=== PATIENT | female | born 1980 | race Caucasian/White ===

== ENCOUNTER 2023-02-18 22:02 | Observation (INO) | payer MEDICARE ==
[2023-02-18 22:54] LABS: #Eosinphils 0.1 thou/uL (0.0-0.7); #Monocytes 0.3 thou/uL (0.11-0.59); #Neutrophils 4.5 thou/uL (1.40-6.50); %Basophils 0.6 % (0.0-1.0); %Eosinophils 0.7 % (0.0-10.0); %Lymphocytes 29.1 % (21.0-51.0); %Monocytes 4.6 % (0.0-10.0); %Neutrophils 64.7 % (42.0-75.0); Hematocrit 39.2 % (36.0-47.0); Hemoglobin 13.5 g/dL (12.0-16.0); Mean Corpuscular HGB CONC 34.4 g/dL (32.0-36.0); Mean Corpuscular Hemoglobin 30.7 pg (27.0-31.0); Mean Corpuscular Volume 89.1 fl (78.0-98.0); Mean Platelet Volume 10.1 fL (7.4-10.4); Platelet Count 258 10x3/uL (130-400); RBC Distribution Width 14.2 % (11.5-14.5)
[2023-02-18] MEDS ORDERED: methylPREDNISolone Sod Succ/PF 125 MG/2 ML VIAL ONE (23:01)
[2023-02-18] MEDS ORDERED: Famotidine/PF 20 mg/2ml Vial ONE (23:01)
[2023-02-18] MEDS ORDERED: diphenhydrAMINE 50 MG/ML VIAL ONE (23:01)
[2023-02-18] MEDS ORDERED: EPINEPHrine 1 MG/ML VIAL ONE (23:01)
[2023-02-18 23:30] LABS: ALT (SGPT) 13 U/L (8-55); AST (SGOT) 36 U/L (5-34); Albumin 3.4 g/dL (3.5-5.0); Alkaline Phosphatase 92 U/L (40-110); Anion Gap 14 mmol/L (10-20); BUN (Urea Nitrogen) 4 mg/dL (7.0-18.7); Bilirubin, Total 0.7 mg/dL (0.2-1.2); Calc. Creatinine Clearance 0 mL/min (70-130); Calcium 9.3 mg/dL (7.8-10.44); Carbon Dioxide 22 mmol/L (22-29); Chloride 106 mmol/L (98-107); Estimated GFR 86; Globulin 3.2 g/dL (2.4-3.5); Glucose 116 mg/dL (70-105); Potassium 3.6 mmol/L (3.5-5.1); Protein, Total 6.6 g/dL (6.0-8.3); Sodium 138 mmol/L (136-145)
[2023-02-19] MEDS ORDERED: Ondansetron PF 4 MG/2 ML Vial IVP PRN (00:58)
[2023-02-19] MEDS ORDERED: Acetaminophen 325 MG TAB PO PRN (00:58)
[2023-02-19] MEDS ORDERED: Ipratropium/Albuterol 3 ML NEB EZPAP PRN (00:59)
[2023-02-19] MEDS ORDERED: Midodrine HCl 5 MG TAB PO PRN (01:10)
[2023-02-19] MEDS ORDERED: HYOSCYAMINE 0.125 MG PO SCH ×2 (01:30→10:00)
[2023-02-19] MEDS ORDERED: UDCUP PO SCH ×2 (01:30→10:00)
[2023-02-19 01:59] VITALS: BMI 39.2
[2023-02-19 06:27] LABS: #Monocytes 0.1 thou/uL (0.11-0.59); #Neutrophils 4.5 thou/uL (1.40-6.50); %Basophils 0.4 % (0.0-1.0); %Lymphocytes 14.2 % (21.0-51.0); %Monocytes 1.1 % (0.0-10.0); %Neutrophils 83.7 % (42.0-75.0); Hematocrit 39.8 % (36.0-47.0); Hemoglobin 13.6 g/dL (12.0-16.0); Mean Corpuscular HGB CONC 34.2 g/dL (32.0-36.0); Mean Corpuscular Hemoglobin 30.4 pg (27.0-31.0); Mean Platelet Volume 10.3 fL (7.4-10.4); Platelet Count 261 10x3/uL (130-400); RBC Distribution Width 14.3 % (11.5-14.5); Red Blood Cell (RBC) Count 4.47 mill/uL (4.20-5.40); White Blood Cell (WBC) Count 5.4 10x3/uL (4.8-10.8)
[2023-02-19 06:56] LABS: Anion Gap 14 mmol/L (10-20); BUN (Urea Nitrogen) 6 mg/dL (7.0-18.7); Calc. Creatinine Clearance 163 mL/min (70-130); Calcium 9.3 mg/dL (7.8-10.44); Carbon Dioxide 22 mmol/L (22-29); Chloride 106 mmol/L (98-107); Estimated GFR 89; Glucose 149 mg/dL (70-105); Potassium 3.5 mmol/L (3.5-5.1); Sodium 138 mmol/L (136-145)
[2023-02-19] MEDS ORDERED: Multivitamin W/ Minerals 1 TAB PO SCH (09:00)
[2023-02-19] MEDS ORDERED: prednisoLONE 10 MG ODT TAB PO SCH (09:00)
[2023-02-19] MEDS ORDERED: Folic Acid 1 MG TAB PO SCH (09:00)
[2023-02-19] MEDS ORDERED: Lactulose 20 GM (30 mL) UDCUP PO SCH (09:00)
[2023-02-19] MEDS ORDERED: methylPREDNISolone Sod Succ 40 MG VIAL IVP SCH (09:00)
[2023-02-19] MEDS ORDERED: Thiamine 100 MG TAB PO SCH (09:00)
[2023-02-19] MEDS ORDERED: Sodium Chloride 0.9% 1,000 ML IV SCH (09:45)
[2023-02-19] MEDS ORDERED: Folic Acid 1 MG TAB ONE (10:20)
[2023-02-19] MEDS ORDERED: Thiamine 100 MG TAB ONE (10:21)
[2023-02-19] MEDS ORDERED: Lactulose 20 GM (30 mL) UDCUP ONE (10:21)
[2023-02-19] MEDS ORDERED: Multivit, Therapeutic 1 TAB ONE (10:21)
[2023-02-19 11:24] LABS: Amphetamine Not Detected (NotDetected); Barbiturates Screen Not Detected (NotDetected); Benzodiazepine Screen Not Detected (NotDetected); Cocaine Metabolite Screen Not Detected (NotDetected); Methadone Not Detected (NotDetected); Methamphetamine Not Detected (NotDetected); Opiate Screen Detected (NotDetected); Oxycodone Screen Not Detected (NotDetected); Phencyclidine (PCP) Not Detected (NotDetected); THC/Cannabinoid Screen Detected (NotDetected); Tricyclic Screen Not Detected (NotDetected)
[2023-02-19 11:29] VITALS: BP 153/90; TEMP 98.1
[2023-02-19 13:51] LABS: Bilirubin Negative (Negative); Blood, Urine Negative (Negative); Clarity Clear (Clear); Glucose, Urine (Dipstick) Normal (Negative); Ketone, Urine Negative (Negative); Leukocyte Negative Leu/uL (Negative); Nitrite Negative (Negative); Protein, Urine (Dipstick) Negative (Neg-Trace); Specific Gravity, Urine 1.012 (1.002-1.036); pH, Urine 5.5 (5.0-9.0)
== END 2023-02-20 12:32 | disposition left against medical advice (07) ==
LOC: ERS 22:02 → ERHOLD 02-19 01:00
PROVIDERS: ADMIT Internal Medicine; ATTEND Hospitalist
DX: T78.3XXA Angioneurotic edema, initial encounter (principal); E27.40 Unspecified adrenocortical insufficiency; J44.9 Chronic obstructive pulmonary disease, unspecified; K70.30 Alcoholic cirrhosis of liver without ascites; I27.20 Pulmonary hypertension, unspecified; I50.9 Heart failure, unspecified; F10.10 Alcohol abuse, uncomplicated; J96.11 Chronic respiratory failure with hypoxia; Z88.8 Allergy status to other drugs, medicaments and biological substances; Z87.891 Personal history of nicotine dependence
CPT/HCPCS: 80048; 80053; 80306; 81003; 85025 ×2; 93005; 96372; 96374; 96375; 99285; J0171; 36415; J1200; J2930; J7050; S0028

== ENCOUNTER 2023-06-22 21:38 | Inpatient (IN) | payer MEDICARE ==
[2023-06-22] MEDS ORDERED: Ondansetron PF 4 MG/2 ML Vial ONE (22:27)
[2023-06-22] MEDS ORDERED: LORazepam 2 MG/ML SYR.(CARPUJECT) ONE (22:28)
[2023-06-22 22:33] LABS: #Basophils 0.08 10x3/uL (0.0-0.2); %Basophils 0.8 % (0.0-1.0); %Eosinophils 2.1 % (0.0-10.0); %Lymphocytes 42.3 % (21.0-51.0); %Monocytes 7.2 % (0.0-10.0); %Neutrophils 47.1 % (42.0-75.0); Hemoglobin 15.1 g/dL (12.0-16.0); Mean Corpuscular HGB CONC 35.1 g/dL (32.0-36.0); Mean Corpuscular Hemoglobin 31.5 pg (27.0-31.0); Mean Corpuscular Volume 89.8 fL (78.0-98.0); Mean Platelet Volume 9.6 fL (7.4-10.4); Platelet Count 317 10x3/uL (130-400); RBC Distribution Width 13.2 % (11.5-14.5); Red Blood Cell (RBC) Count 4.79 mill/uL (4.20-5.40)
[2023-06-22 22:43] LABS: ALT (SGPT) 35 U/L (8-55); AST (SGOT) 31 U/L (5-34); Acetaminophen Less than 10 mcg/mL (10.0-30.0); Albumin 4.1 g/dL (3.5-5.0); Alcohol Less than 10.0 mg/dL (Less than 10); Alkaline Phosphatase 134 U/L (40-110); Anion Gap 15 mmol/L (10-20); BUN (Urea Nitrogen) 8 mg/dL (7.0-18.7); Bilirubin, Total 0.6 mg/dL (0.2-1.2); Calc. Creatinine Clearance 0 mL/min (70-130); Carbon Dioxide 23 mmol/L (22-29); Chloride 107 mmol/L (98-107); Estimated GFR 89; Globulin 3.6 g/dL (2.4-3.5); Glucose 87 mg/dL (70-105); Potassium 3.9 mmol/L (3.5-5.1); Protein, Total 7.7 g/dL (6.0-8.3); Salicylate Less than 8.0 mg/dL (15.0-30.0); Sodium 141 mmol/L (136-145)
[2023-06-22 22:46] LABS: PTT 28.1 sec (22.9-36.1); Prothrombin Time 13.2 sec (12.0-14.7)
[2023-06-22 22:50] LABS: Troponin I Less than 0.010 ng/mL (< 0.028)
[2023-06-22 22:59] LABS: Actual Bicarbonate (HCO3v) 21.4 mEq/L (22-28); Base Excess -2.5 mEq/L (-2.0 to +3.0); Calcium, Ionized (venous) 1.11 mmol/L (1.16-1.32); Chloride (VBG) 105 mmol/L (98-106); Hematocrit-VBG 48 % (36.0-47.0); Hemoglobin (Hb) 16.2 g/dL (11.7-15.5); Potassium (VBG) 3.83 mmol/L (3.70-5.30); Sodium 141 mmol/L (133-146); pH (venous) 7.406 (7.32-7.43)
[2023-06-22 23:07] LABS: D-Dimer Test Less than 0.27 mcg/mL (0.27-0.43)
[2023-06-22] MEDS ORDERED: Electrolyte Replacement Protocol 1 EACH FS SCH (23:45)
[2023-06-22] MEDS ORDERED: Ondansetron ODT 4 MG TAB SL PRN (23:45)
[2023-06-22] MEDS ORDERED: Ondansetron PF 4 MG/2 ML Vial IVP PRN (23:45)
[2023-06-22] MEDS ORDERED: Lorazepam 2 MG/ML VIAL IM PRN (23:47)
[2023-06-22] MEDS ORDERED: Lorazepam 1 MG TAB PO PRN (23:47)
[2023-06-22] MEDS ORDERED: Morphine 4 MG/ML VIAL ONE (23:49)
[2023-06-22] MEDS ORDERED: Aspirin Chewable 81 MG TAB ONE (23:50)
[2023-06-23 01:39] LABS: Troponin I Less than 0.010 ng/mL (< 0.028)
[2023-06-23 01:52] VITALS: BMI 38.5
[2023-06-23 02:18] LABS: #Basophils 0.05 10x3/uL (0.0-0.2); %Basophils 0.6 % (0.0-1.0); %Eosinophils 2.4 % (0.0-10.0); %Lymphocytes 33.6 % (21.0-51.0); %Monocytes 7.3 % (0.0-10.0); %Neutrophils 55.8 % (42.0-75.0); Hematocrit 40.1 % (36.0-47.0); Hemoglobin 14.1 g/dL (12.0-16.0); Mean Corpuscular HGB CONC 35.2 g/dL (32.0-36.0); Mean Corpuscular Hemoglobin 31.1 pg (27.0-31.0); Mean Corpuscular Volume 88.5 fL (78.0-98.0); Mean Platelet Volume 9.3 fL (7.4-10.4); Platelet Count 257 10x3/uL (130-400); RBC Distribution Width 13.3 % (11.5-14.5); Red Blood Cell (RBC) Count 4.53 mill/uL (4.20-5.40)
[2023-06-23] MEDS: Lorazepam 1 MG TAB PO SCH (02:21)
[2023-06-23] MEDS: Multivitamins, Adult 10 ML, Thiamine HCl 100 MG, Folic Acid 1 MG in Dextrose 5 %-0.45 %... IV SCH (02:22)
[2023-06-23 02:33] LABS: Lactic Acid 1.3 mmol/L (0.5-2.2)
[2023-06-23] MEDS: Acetaminophen 325 MG TAB PO PRN (02:39)
[2023-06-23 02:52] LABS: Anion Gap 14 mmol/L (10-20); BUN (Urea Nitrogen) 8 mg/dL (7.0-18.7); Calc. Creatinine Clearance 184 mL/min (70-130); Calcium 9.4 mg/dL (7.8-10.44); Carbon Dioxide 19 mmol/L (22-29); Chloride 108 mmol/L (98-107); Estimated GFR 106; Glucose 101 mg/dL (70-105); Potassium 3.4 mmol/L (3.5-5.1); Sodium 138 mmol/L (136-145)
[2023-06-23] MEDS: Thiamine HCl 200 MG/2 ML VIAL SLOW IVP SCH (03:57)
[2023-06-23 05:14] LABS: Troponin I 0.011 ng/mL (< 0.028)
[2023-06-23 06:16] LABS: Amphetamine Not Detected (NotDetected); Barbiturates Screen Not Detected (NotDetected); Benzodiazepine Screen Detected (NotDetected); Cocaine Metabolite Screen Not Detected (NotDetected); Methadone Not Detected (NotDetected); Methamphetamine Not Detected (NotDetected); Opiate Screen Detected (NotDetected); Oxycodone Screen Not Detected (NotDetected); Phencyclidine (PCP) Not Detected (NotDetected); THC/Cannabinoid Screen Detected (NotDetected); Tricyclic Screen Not Detected (NotDetected)
[2023-06-23] MEDS: Magnesium 2 GM/50 ML(in water) 2 GM in Premix 1 BAG IVPB SCH (06:43)
[2023-06-23] MEDS: Potassium Chloride 20 MEQ TAB PO SCH (06:44)
[2023-06-23] MEDS: Folic Acid 1 MG TAB PO SCH (08:20)
[2023-06-23] MEDS: Multivit, Therapeutic 1 TAB PO SCH (08:21)
[2023-06-23] MEDS ORDERED: Diazepam 5 MG TAB PO SCH (12:45)
[2023-06-23 13:15] LABS: Pregnancy Test - Urine (BHCG) Negative (Negative); Pregu Control Background? CLEAR/WHITE (CLR/WHITE); Pregu Control Bar Appear? YES (CONTROL BAR); Specific Gravity 1.006 (1.002-1.036)
[2023-06-23] MEDS: Ondansetron ODT 4 MG TAB PO PRN (17:46)
[2023-06-23] MEDS ORDERED: Methocarbamol 500 MG TAB PO PRN (18:26)
[2023-06-23] MEDS ORDERED: Acetaminophen/Codeine 30-300mg Tablet PO PRN (18:31)
[2023-06-23] MEDS: predniSONE 5 MG TAB PO SCH (21:28)
[2023-06-23] MEDS: Atorvastatin Calcium 40 MG TAB PO SCH (21:28)
[2023-06-23] MEDS ORDERED: Lorazepam 1 MG TAB PO PRN (23:47)
[2023-06-24 04:39] LABS: #Basophils 0.05 10x3/uL (0.0-0.2); %Basophils 0.6 % (0.0-1.0); %Eosinophils 1.6 % (0.0-10.0); %Lymphocytes 24.2 % (21.0-51.0); %Neutrophils 68.2 % (42.0-75.0); Hematocrit 43.7 % (36.0-47.0); Hemoglobin 14.9 g/dL (12.0-16.0); Mean Corpuscular HGB CONC 34.1 g/dL (32.0-36.0); Mean Corpuscular Hemoglobin 31.7 pg (27.0-31.0); Mean Platelet Volume 9.4 fL (7.4-10.4); Platelet Count 295 10x3/uL (130-400); RBC Distribution Width 13.2 % (11.5-14.5)
[2023-06-24 04:50] LABS: Anion Gap 13 mmol/L (10-20); BUN (Urea Nitrogen) 7 mg/dL (7.0-18.7); Calc. Creatinine Clearance 166 mL/min (70-130); Calcium 9.7 mg/dL (7.8-10.44); Carbon Dioxide 23 mmol/L (22-29); Chloride 106 mmol/L (98-107); Estimated GFR 93; Glucose 105 mg/dL (70-105); Magnesium 2.2 mg/dL (1.6-2.6); Potassium 4.2 mmol/L (3.5-5.1); Sodium 138 mmol/L (136-145)
[2023-06-24 07:35] VITALS: BMI 38.5
[2023-06-24] MEDS: Pantoprazole DR 40 MG TAB PO SCH (09:10)
[2023-06-24] MEDS: Potassium Chloride 20 MEQ TAB PO SCH (09:10)
[2023-06-24] MEDS: Aspirin 81 mg Enteric Coated Tablet PO SCH (09:10)
[2023-06-24] MEDS: Lactulose 20 GM (30 mL) UDCUP PO SCH (09:11)
[2023-06-24] MEDS: Furosemide 40 MG TAB PO SCH (09:11)
[2023-06-24] MEDS: predniSONE 5 MG TAB PO SCH (09:11)
[2023-06-24] MEDS: Lorazepam 2 MG/ML VIAL SLOW IVP SCH (15:25)
[2023-06-24 16:56] VITALS: BP 142/90; TEMP 98
[2023-06-24] MEDS ORDERED: Lorazepam 0.5 MG TAB PO SCH (23:45)
[2023-06-24] MEDS ORDERED: Lorazepam 1 MG TAB PO PRN (23:47)
[2023-06-25] MEDS ORDERED: Thiamine 100 MG TAB PO SCH (21:00)
[2023-06-25] MEDS ORDERED: Lorazepam 0.5 MG TAB PO PRN (23:47)
== END 2023-06-24 18:54 | disposition home or self-care (01) | DRG 897 ==
LOC: ERS 21:38 → 2SW 23:32 → OBSVTOIN 06-23 13:38
PROVIDERS: ADMIT Student in an Organized Health Care Education/Training Program; ATTEND Internal Medicine
DX: F10.239 Alcohol dependence with withdrawal, unspecified (principal); I50.32 Chronic diastolic (congestive) heart failure; R07.89 Other chest pain; J44.9 Chronic obstructive pulmonary disease, unspecified; Z88.8 Allergy status to other drugs, medicaments and biological substances; Z79.899 Other long term (current) drug therapy; Z79.82 Long term (current) use of aspirin; K70.30 Alcoholic cirrhosis of liver without ascites; F41.9 Anxiety disorder, unspecified; M48.02 Spinal stenosis, cervical region; M54.12 Radiculopathy, cervical region; I27.20 Pulmonary hypertension, unspecified
CPT/HCPCS: 36415; 71045; 72156; 80048; 80053; 80306; 80307; 81025; 82805; 83605; 83735; 83880; 84443; 84484; 85025; 85379; 85610; 85730; 93005; 94760; J2060; J2270; J2405; J3411; J3475; J7042; J7512; Q0162

== ENCOUNTER 2023-08-15 09:20 | Emergency (ER) | payer MEDICARE, SELFPAY ==
[2023-08-15] MEDS ORDERED: Morphine 4 MG/ML VIAL ONE ×2 (09:39→11:49)
[2023-08-15] MEDS ORDERED: Ondansetron PF 4 MG/2 ML Vial ONE ×2 (09:39→11:49)
[2023-08-15 09:50] LABS: #Basophils 0.04 10x3/uL (0.0-0.2); %Basophils 0.4 % (0.0-1.0); %Eosinophils 0.5 % (0.0-10.0); %Lymphocytes 15.7 % (21.0-51.0); %Monocytes 4.5 % (0.0-10.0); %Neutrophils 78.5 % (42.0-75.0); Hematocrit 44.8 % (36.0-47.0); Hemoglobin 15.4 g/dL (12.0-16.0); Mean Corpuscular HGB CONC 34.4 g/dL (32.0-36.0); Mean Corpuscular Hemoglobin 30.9 pg (27.0-31.0); Mean Platelet Volume 9.4 fL (7.4-10.4); Platelet Count 313 10x3/uL (130-400); Red Blood Cell (RBC) Count 4.98 mill/uL (4.20-5.40)
[2023-08-15 10:03] LABS: ALT (SGPT) 28 U/L (8-55); AST (SGOT) 25 U/L (5-34); Albumin 4.1 g/dL (3.5-5.0); Alkaline Phosphatase 151 U/L (40-110); Anion Gap 15 mmol/L (10-20); BUN (Urea Nitrogen) 11 mg/dL (7.0-18.7); Calc. Creatinine Clearance 0 mL/min (70-130); Calcium 9.9 mg/dL (7.8-10.44); Carbon Dioxide 22 mmol/L (22-29); Chloride 106 mmol/L (98-107); Estimated GFR 92; Globulin 3.7 g/dL (2.4-3.5); Glucose 94 mg/dL (70-105); Magnesium 2.1 mg/dL (1.6-2.6); Potassium 4.1 mmol/L (3.5-5.1); Protein, Total 7.8 g/dL (6.0-8.3); Sodium 139 mmol/L (136-145)
[2023-08-15 10:10] LABS: Troponin I Less than 0.010 ng/mL (< 0.028)
[2023-08-15 10:37] LABS: Digoxin Less than 0.19 ng/mL (0.8-2.0)
[2023-08-15] MEDS ORDERED: Ketorolac Tromethamine 30 MG (1 mL) VIAL ONE (11:49)
== END 2023-08-15 12:44 | disposition home or self-care (01) ==
LOC: ERS 09:20
DX: R07.89 Other chest pain (principal); R51.9 Headache, unspecified; J44.9 Chronic obstructive pulmonary disease, unspecified
CPT/HCPCS: 71045; 80053; 80162; 83735; 83880; 84484; 85025; 93005; J1885; J2270; J2405; 36415; 96374; 96375; 96376

== ENCOUNTER 2023-09-03 09:29 | Observation (INO) | payer OTHER, SELFPAY ==
[2023-09-03] MEDS ORDERED: Morphine 4 MG/ML VIAL ONE (10:15)
[2023-09-03] MEDS ORDERED: Ondansetron PF 4 MG/2 ML Vial ONE (10:15)
[2023-09-03 10:22] LABS: #Basophils 0.06 10x3/uL (0.0-0.2); %Basophils 0.6 % (0.0-1.0); %Eosinophils 1.9 % (0.0-10.0); %Lymphocytes 36.3 % (21.0-51.0); %Monocytes 8.1 % (0.0-10.0); %Neutrophils 52.9 % (42.0-75.0); Hematocrit 45.1 % (36.0-47.0); Hemoglobin 15.9 g/dL (12.0-16.0); Mean Corpuscular HGB CONC 35.3 g/dL (32.0-36.0); Mean Corpuscular Hemoglobin 30.8 pg (27.0-31.0); Mean Corpuscular Volume 87.4 fL (78.0-98.0); Mean Platelet Volume 9.5 fL (7.4-10.4); Platelet Count 345 10x3/uL (130-400); RBC Distribution Width 12.8 % (11.5-14.5); Red Blood Cell (RBC) Count 5.16 mill/uL (4.20-5.40)
[2023-09-03 10:42] LABS: Digoxin Less than 0.19 ng/mL (0.8-2.0); Prothrombin Time 12.9 sec (12.0-14.7)
[2023-09-03 10:46] LABS: Troponin I Less than 0.010 ng/mL (< 0.028)
[2023-09-03 11:40] LABS: ALT (SGPT) 25 U/L (8-55); AST (SGOT) 25 U/L (5-34); Albumin 4.3 g/dL (3.5-5.0); Alkaline Phosphatase 140 U/L (40-110); Anion Gap 13 mmol/L (10-20); BUN (Urea Nitrogen) 7 mg/dL (7.0-18.7); Calc. Creatinine Clearance 0 mL/min (70-130); Carbon Dioxide 24 mmol/L (22-29); Chloride 105 mmol/L (98-107); Estimated GFR 75; Globulin 3.6 g/dL (2.4-3.5); Glucose 77 mg/dL (70-105); Lipase 20 U/L (8-78); Potassium 3.4 mmol/L (3.5-5.1); Protein, Total 7.9 g/dL (6.0-8.3); Sodium 139 mmol/L (136-145)
[2023-09-03 11:43] LABS: Influenza A by NAA Not Detected (NotDetected); Influenza B by NAA Not Detected (NotDetected); SARS-CoV-2 NAA Rapid Test Not Detected (NotDetected)
[2023-09-03] MEDS ORDERED: Acetaminophen 325 MG TAB PO PRN (12:18)
[2023-09-03 13:45] VITALS: BMI 35.7
[2023-09-03 14:49] LABS: Troponin I Less than 0.010 ng/mL (< 0.028)
[2023-09-03 16:52] LABS: Troponin I Less than 0.010 ng/mL (< 0.028)
[2023-09-03] MEDS: Potassium Chloride 20 MEQ TAB PO SCH (17:28)
[2023-09-03] MEDS: Prochlorperazine Edisylate 10 MG in Sodium Chloride 0.9% 50 ML IVPB PRN (17:29)
[2023-09-03] MEDS ORDERED: HYDROcodone/Acetaminophen 5/325 mg Tablet PO PRN (20:46)
[2023-09-03] MEDS ORDERED: ALPRAZolam 0.5 MG TAB PO PRN (20:46)
[2023-09-03] MEDS ORDERED: Acetaminophen/Codeine 30-300mg Tablet PO PRN (20:46)
[2023-09-03] MEDS ORDERED: Cyclobenzaprine 10 MG TAB PO PRN (20:46)
[2023-09-03] MEDS ORDERED: tiZANidine HCl 4 MG TAB PO PRN (20:46)
[2023-09-04 01:44] LABS: Amphetamine Detected (NotDetected); Barbiturates Screen Not Detected (NotDetected); Benzodiazepine Screen Not Detected (NotDetected); Cocaine Metabolite Screen Not Detected (NotDetected); Methadone Not Detected (NotDetected); Methamphetamine Detected (NotDetected); Opiate Screen Detected (NotDetected); Oxycodone Screen Not Detected (NotDetected); Phencyclidine (PCP) Not Detected (NotDetected); THC/Cannabinoid Screen Detected (NotDetected); Tricyclic Screen Not Detected (NotDetected)
[2023-09-04 04:35] LABS: Hematocrit 43.8 % (36.0-47.0); Mean Corpuscular HGB CONC 34.2 g/dL (32.0-36.0); Mean Corpuscular Hemoglobin 31.1 pg (27.0-31.0); Mean Corpuscular Volume 90.7 fL (78.0-98.0); Mean Platelet Volume 9.9 fL (7.4-10.4); Platelet Count 308 10x3/uL (130-400); RBC Distribution Width 12.8 % (11.5-14.5); Red Blood Cell (RBC) Count 4.83 mill/uL (4.20-5.40)
[2023-09-04 05:11] LABS: ALT (SGPT) 18 U/L (8-55); AST (SGOT) 23 U/L (5-34); Albumin 3.7 g/dL (3.5-5.0); Alkaline Phosphatase 125 U/L (40-110); Anion Gap 12 mmol/L (10-20); BUN (Urea Nitrogen) 7 mg/dL (7.0-18.7); Bilirubin, Total 1.2 mg/dL (0.2-1.2); Calc. Creatinine Clearance 143 mL/min (70-130); Calcium 9.4 mg/dL (7.8-10.44); Carbon Dioxide 23 mmol/L (22-29); Chloride 106 mmol/L (98-107); Estimated GFR 86; Globulin 3.4 g/dL (2.4-3.5); Glucose 79 mg/dL (70-105); Potassium 3.3 mmol/L (3.5-5.1); Protein, Total 7.1 g/dL (6.0-8.3); Sodium 138 mmol/L (136-145)
[2023-09-04] MEDS: Lactulose 20 GM (30 mL) UDCUP PO SCH (08:43)
[2023-09-04] MEDS: Enoxaparin 40 MG (0.4 mL) SYRINGE SC SCH (08:44)
[2023-09-04] MEDS: predniSONE 5 MG TAB PO SCH (08:44)
[2023-09-04] MEDS: Escitalopram Oxalate 10 mg Tablet PO SCH (08:44)
[2023-09-04] MEDS: Folic Acid 1 MG TAB PO SCH (08:44)
[2023-09-04] MEDS: Atorvastatin Calcium 40 MG TAB PO SCH (08:44)
[2023-09-04] MEDS: Multivit, Therapeutic 1 TAB PO SCH (08:44)
[2023-09-04] MEDS ORDERED: Ondansetron PF 4 MG/2 ML Vial IVP PRN (08:52)
[2023-09-04] MEDS: Potassium Chloride 20 MEQ TAB PO SCH (09:20)
[2023-09-04 09:33] VITALS: BMI 35.7
[2023-09-04 12:18] VITALS: BP 136/63; TEMP 97.6
[2023-09-06] MEDS ORDERED: Thiamine 100 MG TAB PO SCH (21:00)
[2023-09-10] MEDS ORDERED: Ergocalciferol 1.25 MG(50,000 UNITS) CAP PO SCH (09:00)
== END 2023-09-04 14:25 | disposition home or self-care (01) ==
LOC: ERS 09:29 → 2SW 12:04
PROVIDERS: ADMIT Internal Medicine; ATTEND Internal Medicine
DX: R07.89 Other chest pain (principal); K76.0 Fatty (change of) liver, not elsewhere classified; J44.9 Chronic obstructive pulmonary disease, unspecified; I50.30 Unspecified diastolic (congestive) heart failure; I27.20 Pulmonary hypertension, unspecified; F12.10 Cannabis abuse, uncomplicated; F15.10 Other stimulant abuse, uncomplicated; E27.40 Unspecified adrenocortical insufficiency; F41.9 Anxiety disorder, unspecified; F32.A Depression, unspecified; E27.1 Primary adrenocortical insufficiency; F10.10 Alcohol abuse, uncomplicated; Z88.5 Allergy status to narcotic agent; Z88.8 Allergy status to other drugs, medicaments and biological substances; Z79.899 Other long term (current) drug therapy
CPT/HCPCS: 36415; 36416; 71045; 76705; 80053; 80162; 80306; 83690; 83880; 84484; 85025; 85027; 85610; 85730; 93005; 94760; 96365; 96372; 96374; 96375; 96376; G0378; J0780; J1650; J2270; J2405; J7512

== ENCOUNTER 2023-11-04 18:27 | Emergency (ER) | payer MEDICARE | END 2023-11-04 19:55 | disposition left against medical advice (07) | LOC: ERS 18:27 | DX: Z53.21 Procedure and treatment not carried out due to patient leaving prior to being seen by health care provider (principal) ==

== ENCOUNTER 2023-11-26 04:47 | Emergency (ER) | payer MEDICARE ==
[2023-11-26] MEDS ORDERED: diphenhydrAMINE 50 MG/ML VIAL ONE (05:20)
[2023-11-26] MEDS ORDERED: Metoclopramide HCl 10 MG (2 mL) VIAL ONE (05:20)
[2023-11-26] MEDS ORDERED: Ketorolac Tromethamine 30 MG (1 mL) VIAL ONE (06:24)
== END 2023-11-26 06:50 | disposition home or self-care (01) ==
LOC: ERS 04:47
DX: M54.2 Cervicalgia (principal); R51.9 Headache, unspecified; I11.0 Hypertensive heart disease with heart failure; I50.9 Heart failure, unspecified; Z55.6 Problems related to health literacy
CPT/HCPCS: 70450; 96374; 96375; 99284; J1200; J1885; J2765

== ENCOUNTER 2024-01-22 18:21 | Emergency (ER) | payer MEDICARE | END 2024-01-22 21:17 | LOC: ERS 18:21 | DX: S00.11XA Contusion of right eyelid and periocular area, initial encounter (principal); S00.83XA Contusion of other part of head, initial encounter; M79.641 Pain in right hand; X99.1XXA Assault by knife, initial encounter | CPT/HCPCS: 70450; 70486 ==

== ENCOUNTER 2024-03-08 19:02 | Emergency (ER) | payer MEDICARE, SELFPAY ==
[~2024-03-08 19:02] MED LIST: Iopamidol-370 76% 500 ML MDV (1 ML CHARGE) ONE
[2024-03-08 22:05] LABS: #Basophils 0.04 10x3/uL (0.0-0.2); %Basophils 0.4 % (0.0-1.0); %Eosinophils 2.5 % (0.0-10.0); %Monocytes 6.3 % (0.0-10.0); %Neutrophils 63.6 % (42.0-75.0); Hematocrit 40.3 % (36.0-47.0); Hemoglobin 14.4 g/dL (12.0-16.0); Mean Corpuscular HGB CONC 35.7 g/dL (32.0-36.0); Mean Corpuscular Hemoglobin 32.7 pg (27.0-31.0); Mean Corpuscular Volume 91.4 fL (78.0-98.0); Mean Platelet Volume 9.2 fL (7.4-10.4); Platelet Count 315 10x3/uL (130-400); RBC Distribution Width 13.5 % (11.5-14.5); Red Blood Cell (RBC) Count 4.41 mill/uL (4.20-5.40)
[2024-03-08] MEDS ORDERED: Ondansetron PF 4 MG/2 ML Vial ONE (22:25)
[2024-03-08 22:31] LABS: ALT (SGPT) 9 U/L (Less than 34); AST (SGOT) 26 U/L (11-34); Albumin 3.9 g/dL (3.1-4.5); Alkaline Phosphatase 175 U/L (40-110); Anion Gap 12 mmol/L (10-20); BUN (Urea Nitrogen) Less than 4 mg/dL (7.0-18.7); Bilirubin, Total 0.7 mg/dL (0.3-1.2); Calc. Creatinine Clearance 0 mL/min (70-130); Calcium 9.1 mg/dL (7.8-10.44); Carbon Dioxide 24 mmol/L (22-29); Chloride 104 mmol/L (98-107); Estimated GFR 93; Globulin 4.2 g/dL (2.4-3.5); Glucose 87 mg/dL (70-105); Potassium 3.3 mmol/L (3.5-5.1); Protein, Total 8.1 g/dL (6.0-8.3); Sodium 137 mmol/L (136-145)
[2024-03-08 22:36] LABS: Troponin I Less than 0.010 ng/mL (< 0.028)
[2024-03-08] MEDS ORDERED: Ketorolac Tromethamine 30 MG (1 mL) VIAL ONE (22:47)
[2024-03-08 23:40] LABS: BHCG - Serum Negative (NEGATIVE); Pregs Control Background? CLEAR/WHITE (CLR/WHITE); Pregs Control Bar Appear? YES (CONTROL BAR)
[2024-03-09 01:30] LABS: Bacteria/HPF None Seen HPF (None Seen); Bilirubin Negative (Negative); Blood, Urine Negative (Negative); CAUTI Indications for Culture Alt mental st,lethar; Clarity Clear (Clear); Glucose, Urine (Dipstick) Normal (Negative); Ketone, Urine Negative (Negative); Leukocyte 75 Leu/uL (Negative); Nitrite Negative (Negative); Protein, Urine (Dipstick) Negative (Neg-Trace); RBC/HPF 0-3 HPF (0-3); Specific Gravity, Urine 1.037 (1.002-1.036); Urobilinogen Normal mg/dL (Less than 2); WBC/HPF 0-3 HPF (0-3)
[2024-03-09 01:32] LABS: Urine Culture Reflex No No
== END 2024-03-09 02:13 | disposition home or self-care (01) ==
LOC: ERS 19:02
DX: R07.9 Chest pain, unspecified (principal); R10.84 Generalized abdominal pain; I50.9 Heart failure, unspecified; I27.20 Pulmonary hypertension, unspecified
CPT/HCPCS: 70450; 71045; 74177; 80053; 81001; 83690; 83880; 84484; 84703; 85025; 87428; 93005; 96374; 96375; J1885; J2405; Q9967